=== PATIENT | female | born 1945 | race Caucasian/White ===

== ENCOUNTER → 2016-06-05 | Outpatient (CLI) | payer MEDICARE | LOC: LAB.O 11:42 | PROVIDERS: ATTEND Nurse Practitioner Family | DX: N39.0 Urinary tract infection, site not specified (principal); R10.9 Unspecified abdominal pain ==

== ENCOUNTER → 2019-11-15 | Outpatient (CLI) | payer MEDICARE | LOC: GMAM 17:33 | PROVIDERS: ATTEND Family Medicine | DX: L03.115 Cellulitis of right lower limb (principal) ==

== ENCOUNTER → 2019-11-17 | Outpatient (CLI) | payer MEDICARE ==
--- NOTE | 2019-11-17 15:16 | US ---
EXAM DESCRIPTION: Venous,Lower Extremity RT: ULTRASOUND. CLINICAL HISTORY: CELLULITIS. Right lower extremity. COMPARISON: None Available. TECHNIQUE: Laguna-scale and doppler sonographic evaluation of the deep venous system of the right lower extremity. FINDINGS: Doppler evaluation shows normal color flow and normal phasicity and augmentation of the right common femoral vein, femoral vein, popliteal vein, greater saphenous vein, junction with the CFV. Also normal color flow and normal phasicity and augmentation of the peroneal, and posterior tibial vein. The right lower extremity deep veins were completely compressible; normal occlusion with transducer pressure. Laguna-scale survey showed no echogenic thrombus within these veins. IMPRESSION: 1. Duplex ultrasound evaluation of the right lower extremity deep venous system showing no evidence of thrombosis. Electronically signed by: Adonis Sommers MD 11/17/2019 3:15 PM CDT
== END ==
LOC: US 09:34
PROVIDERS: ATTEND Family Medicine
DX: R60.0 Localized edema (principal); L03.115 Cellulitis of right lower limb

== ENCOUNTER 2020-03-05 07:51 | Emergency (ER) | payer MEDICARE ==
--- NOTE | 2020-03-05 07:55 | ED.PDOC ---
History of Present Illness - General Time Seen by Provider: 03/05/20 07:53 Source: patient - History of Present Illness Initial Comments: 75-year-old female with past medical history of hypertension, asthma, chronic smoker who presents with chief complaint of right forearm pain following injury this morning. Patient states around 12:30 AM she was kneeling on her bed and reaching up to grab the ceiling fan cord when she lost her balance and fell off the bed. She reports that she landed on her hips and back. However, she denies pain primarily to the right forearm. Describes constant, throbbing, 5/10 severity pain to the distal lateral right forearm, no radiation, worse with palpation and with closing the hand, no medications taken for relief. She does report moderate swelling to the site of pain. Denies any weakness or numbness. Denies any other injuries or pain. Denies hip pain, back pain. Patient additionally reports she has had some upper respiratory symptoms for the past 4 days with nonproductive cough. She is currently taking azithromycin. She does smoke approximately 4 cigarettes/day. Allergies/Adverse Reactions: Allergies NO KNOWN ALLERGY Allergy (Verified 03/05/20 08:08) Home Medications: Ambulatory Orders Tramadol HCl [Tramadol Hydrochloride] 50 mg PO Q6H PRN 10 Days #10 tab 03/05/20 Review of Systems - Review of Systems Review of Systems: 03/05/20 08:12 as per HPI All other Systems: Reviewed and Negative Past Medical History (General) - Patient Medical History Hx Seizures: No Hx Stroke: No Hx Dementia: No Hx Asthma: No Hx of COPD: No Hx Cardiac Disorders: No Hx Congestive Heart Failure: No Hx Pacemaker: No Hx Hypertension: No Hx Thyroid Disease: No Hx Diabetes: No Hx Gastroesophageal Reflux: No Hx Renal Disease: No Hx Cancer: No Hx of HIV: No Hx Hepatitis C: No Hx MRSA: No - Vaccination History Hx Tetanus, Diphtheria Vaccination: No Hx Influenza Vaccination: No Hx Pneumococcal Vaccination: No - Social History Hx Tobacco Use: No Hx Chewing Tobacco Use: No Hx Alcohol Use: No Hx Substance Use: No Hx Substance Use Treatment: No Hx Depression: No Hx Physical Abuse: No Hx Emotional Abuse: No Hx Suspected Abuse: No - Female History Patient : No Family Medical History - Family History Mother Family History: Unknown Name: mother Age (years): 79 Living Status: Age at (years of age): 79 Cause of : cancer, esophogeal Physical Exam - Physical Exam General Appearance: Alert, Comfortable, No apparent distress Eye Exam: bilateral normal Ears, Nose, Throat: normal ENT inspection, normal pharynx Neck: non-tender, full range of motion, supple, normal inspection Respiratory: lungs clear, normal breath sounds, no respiratory distress, no accessory muscle use Cardiovascular/Chest: normal peripheral pulses, regular rate, rhythm, no edema, no gallop, no JVD, no murmur Peripheral Pulses: radial,right: 2+, radial,left: 2+ Gastrointestinal/Abdominal: non tender, soft, no organomegaly Back Exam: normal inspection, no CVA tenderness, no vertebral tenderness Extremity: other - Right distal forearm with moderate swelling, possible deformity. Moderate tenderness to palpation to distal/lateral right forearm. 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 Otherwise range of motion, strength, sensation normal throughout. 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 Patient declines any further pain medications. Blood pressure is elevated but suspect due to pain, continue to monitor. 03/05/20 10:02 -X-ray imaging of the right forearm and wrist reveals displaced comminuted distal radius fracture of the right upper extremity. There is possibly some intra-articular extension. This is per my read. -There is a tiny superficial abrasion wound to the dorsal aspect of the right wrist. This was cleansed copiously by me with Hibiclens and explored. The base of the wound can easily be seen and does not communicate deeper to the fracture site. This is a closed fracture. There is no tenting noted either. -Discussed the patient with Dr. Benedict who reviewed the x-ray images. Advises to place patient in double sugar tong splint and sling. Patient will need to follow-up with orthopedic clinic in the next 1 to 2 days for repeat evaluation. It is likely that she will need surgery. -Splint placed by me in the ED. Patient reports pain well controlled. Neurovascularly intact. Discussed all findings and plan with patient. Discharged home in good condition, return warnings discussed. Tramadol prescription provided. Sampson Bryan MD Billing #[id number] Procedures - Splinting Right Arm Hand-Made Type: orthoglass Splint: sugar-tong - double Pre-Proc Neuro Vasc Exam: normal Post-Proc Neuro Vasc Exam: normal Departure - Departure Clinical Impression: Radius distal fracture Qualifiers: Encounter type: initial encounter Fracture type: closed Fracture morphology: other fracture Laterality: right Qualified Code(s): S52.591A - Other fractures of lower end of right radius, initial encounter for closed fracture Time of Disposition: 09:11 Disposition: Discharge to Home or Self Care Condition: Good Instructions: Forearm Fracture (DC) Diet: resume usual diet Activity: increase activity as tolerated Referrals: Tai Pizano MD [Primary Care Provider] - 1-2 Weeks Poncho Benedict MD [Active Staff] - 1-2 Days Prescriptions: Tramadol HCl [Tramadol Hydrochloride] 50 mg PO Q6H PRN 10 Days #10 tab PRN Reason: Pain Home Medications: Ambulatory Orders Tramadol HCl [Tramadol Hydrochloride] 50 mg PO Q6H PRN 10 Days #10 tab 03/05/20 Additional Instructions: Keep the splint in place at all times until removed by orthopedic surgery in order to prevent further shift in the fracture segments. Continue to take [id number] anti-inflammatory medications to help relieve pain and inflammation such as Tylenol 650 mg every 6 hours and ibuprofen 600 mg every 6 hours. Follow-up with orthopedic surgery in the next 1 to 2 days in the clinic for repeat evaluation. Return to the ED if you are unable to make your orthopedic surgery clinic appointment for any reason or if you develop any concerning symptoms such as new onset of weakness or numbness of the right hand, etc. Follow-up with your primary care physician also in the next 1 to 2 weeks for repeat evaluation or sooner as needed.
[2020-03-05 08:11] VITALS: TEMP 96.3
--- NOTE | 2020-03-05 08:38 | RAD ---
EXAM DESCRIPTION: Forearm,Right CLINICAL HISTORY: fall off bed, R distal forearm pain COMPARISON: None. IMPRESSION: 2 views of the right forearm show a comminuted mildly displaced fracture at the metadiaphyseal region of the right distal radius without significant angulation of the major distal fracture fragment. Minimal angulation of the distal fracture fragment the radial direction is seen. Mild 3 to 4 mm volar displacement of the largest fracture fragment is seen. Extension to the articular surface is seen without articular surface incongruity. Electronically signed by: Nathanael Peter MD 03/05/2020 8:37 AM CDT
--- NOTE | 2020-03-05 08:39 | RAD ---
EXAM DESCRIPTION: Wrist,Right 3 Views CLINICAL HISTORY: 75 years, Female, fall off bed, R distal forearm pain COMPARISON: None FINDINGS: Right wrist 3 x-ray views is positive for comminuted fracture of the distal right radial diametaphysis with mild impaction and minimal splaying of the fragments. The major distal fracture fragment is angulated slightly laterally. One of the fracture lines extends toward and possibly into the radiocarpal joint. Carpal relationships are well-maintained. 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 IMPRESSION: Comminuted fracture of the distal right radius. Electronically signed by: Fredi Carmona MD 03/05/2020 8:37 AM CDT
[2020-03-05] MEDS ORDERED: CHLORHEXIDINE GLUCONATE 4 % 15 ML UD TOP ONE (08:55)
[2020-03-05] MEDS ORDERED: ACETAMINOPHEN 500 MG TAB PO ONE (09:05)
[2020-03-05 10:23] VITALS: BP 159/86; O2SAT 92
== END 2020-03-05 10:23 | disposition home or self-care (01) ==
LOC: ER 07:51
DX: S52.501A Unspecified fracture of the lower end of right radius, initial encounter for closed fracture (principal); I10 Essential (primary) hypertension; J45.909 Unspecified asthma, uncomplicated; F17.200 Nicotine dependence, unspecified, uncomplicated; W06.XXXA Fall from bed, initial encounter; Y92.003 Bedroom of unspecified non-institutional (private) residence as the place of occurrence of the external cause

== ENCOUNTER 2020-03-07 05:19 | Day surgery (SDC) | payer MEDICARE ==
[2020-03-07] MEDS ORDERED: ceFAZolin SODIUM 1 GM VIAL ONE (05:48)
[2020-03-07] MEDS ORDERED: LACTATED RINGERS 1,000 ML ONE (05:48)
[2020-03-07] MEDS ORDERED: SODIUM CHL 0.9% 100ML MINI-BAG 100 ML IVPB ONE (05:48)
--- NOTE | 2020-03-07 06:19 | RAD ---
EXAM: XR Chest, 2 Views CLINICAL HISTORY: The patient is 75 years old and is Female; PREOP EXAM right radius orthopedic fixation TECHNIQUE: Two views of the chest. COMPARISON: October 31, 2014. FINDINGS: Lungs: Hyperinflation with COPD changes. Nonspecific groundglass opacities in the lung apices. No pulmonary vascular congestion. Pleural space: No pleural effusion or pneumothorax. Heart: Unremarkable. No cardiomegaly. Mediastinum: Unremarkable. Bones/joints: Mild kyphosis. No acute rib fracture identified. Upper abdomen: No free air in the visualized upper abdomen. IMPRESSION: Hyperinflation with COPD changes. Nonspecific groundglass opacities in the lung apices, slightly increased in conspicuity from October 31, 2014. Electronically signed by: Ely Martínez MD 03/07/2020 6:18 AM CDT
[2020-03-07] MEDS ORDERED: LEVALBUTEROL NEBS 1.25 MG/3 ML VIAL NEB STA (06:39)
[2020-03-07] MEDS ORDERED: LEVALBUTEROL NEBS 1.25 MG/3 ML VIAL NEB ONE (07:03)
[2020-03-07] MEDS ORDERED: MIDAZOLAM INJ 2 MG/2 ML VIAL ONE ×2 (08:57→09:17)
[2020-03-07] MEDS ORDERED: BUPIVACAINE 0.5% 30 ML VIAL INJ ONE (08:58)
[2020-03-07] MEDS ORDERED: KETAMINE HCL 100 MG/ML VIAL ONE (09:23)
[2020-03-07] MEDS: BUPIVACAINE LIPOSOME 13.3 MG/ML VIAL INJ ONE ×2 (10:01→12:00)
[2020-03-07] MEDS: ceFAZolin SODIUM 1 GM VIAL ONE ×2 (10:01→12:05)
[2020-03-07] MEDS: BUPIVACAINE 0.5% 30 ML VIAL INJ ONE ×2 (10:01→12:00)
[2020-03-07] MEDS: VANCOMYCIN HCL INJ 1,000 MG VIAL IVPB ONE ×2 (10:02→12:05)
[2020-03-07] MEDS ORDERED: DEXMEDETOMIDINE HCL 200 MCG/2 ML INJ IV ONE (10:57)
--- NOTE | 2020-03-08 08:16 | OP ---
DATE OF PROCEDURE: 03/07/20 PREOPERATIVE DIAGNOSIS: 1. Right radial shaft fracture. POSTOPERATIVE DIAGNOSIS: 1. Right radial shaft fracture. PROCEDURE: 1. ORIF of right radius. SURGEON: Poncho Benedict MD LABORER MINE: Adonis Cardoza CST, SA-C ANESTHESIA: General anesthesia. COMPLICATIONS: None. FINDINGS: Comminuted fracture of the distal one-third of the radius. INDICATION: Nguyen has a history of a fall that occurred the day before presentation to my office. She had the acute onset of pain and unfortunately had sustained a fracture. After discussing the risks, benefits and alternatives to operative therapy, she gave informed consent for ORIF. PROCEDURE: The patient was brought to the Operating Room and placed in supine position. General anesthesia was induced and the patient's arm was sterilely prepped and draped. Following prepping and draping, an incision was made on the anterior aspect of the arm and dissection was carried down to the fracture using standard volar approach to the radius. The fracture was identified and multiple fragments had to be fixed with compression screws. Once those fragments had been fixed, a plate was applied across the fracture site. The holes were drilled and filled and the patient's arm was taken through a range of motion under fluoroscopic imaging. There was no motion at the fracture site either under gross observation or under fluoroscopic observation. At that point, the wound was thoroughly irrigated and the tourniquet was deflated. Following deflation of the tourniquet, hemostasis was achieved. The wound was closed with a combination of running and interrupted subcuticular stitches. Sterile dressings were placed. The patient was awoken from anesthesia and taken to Recovery. POSTOPERATIVE PLAN: She will be immobilized until she sees us in two days. At that point, we will let her start doing range of motion of the elbow, wrist and digits. #[id number] [facility]
--- NOTE | 2020-03-08 19:18 | RAD ---
EXAM DESCRIPTION: Fluoroscopy Up to 1Hr CLINICAL HISTORY: 75 years Female, ORIF RIGHT WRIST COMPARISON: None. IMPRESSION: Multiple intraoperative fluoroscopic images saved for the benefit of the surgeon. Operative changes of screw and plate fixation traversing the distal radius. Please see procedure report for full details. Fluoroscopy time: 83.5 seconds Fluoroscopic images: 2 Total dose: 1.33 mGy Electronically signed by: Musa Tapia MD 03/08/2020 7:16 PM CDT
[2020-03-09 08:14] VITALS: TEMP 97.7
[2020-03-09 08:21] VITALS: BP 128/69; O2SAT 91
== END 2020-03-07 13:00 | disposition home or self-care (01) ==
LOC: AMB 05:19
PROVIDERS: ATTEND Orthopaedic Surgery
DX: S52.351A Displaced comminuted fracture of shaft of radius, right arm, initial encounter for closed fracture (principal); J45.909 Unspecified asthma, uncomplicated; Z79.899 Other long term (current) drug therapy; W19.XXXA Unspecified fall, initial encounter
CPT/HCPCS: 01830; 25515; 36415; 71046; 76000; 80048; 80307; 85025; 87070; 87635; 93005; 94640; J0690; J2250; J3370; J3490; J7050; J7120; J7614

== ENCOUNTER → 2020-03-09 | Outpatient (CLI) | payer MEDICARE ==
--- NOTE | 2020-03-11 19:11 | RAD ---
EXAM DESCRIPTION: Forearm,Right: CR/ CLINICAL HISTORY: 75 years Female, CLOSED FRACTURE OF SHAFT OF RADIUS COMPARISON: Posttraumatic radiographs right forearm March 05. TECHNIQUE/FINDINGS: 2 views right forearm post ORIF and immobilization. IMPRESSION: Volar plate at the distal right radial diaphyseal fracture. Multiple screws for fixation. Near-anatomic alignment. Small bone density along the ulnar aspect of the fracture site. No complications. Electronically signed by: Adonis Sommers MD 03/11/2020 7:10 PM CDT
== END ==
LOC: RAD 10:06
PROVIDERS: ATTEND Orthopaedic Surgery
DX: S52.351D Displaced comminuted fracture of shaft of radius, right arm, subsequent encounter for closed fracture with routine healing (principal); Z98.890 Other specified postprocedural states

== ENCOUNTER → 2020-03-30 | Outpatient (CLI) | payer MEDICARE ==
--- NOTE | 2020-03-30 16:12 | RAD ---
EXAM DESCRIPTION: Forearm,Right CLINICAL HISTORY: FRACTURE COMPARISON: 09 March 2020 TECHNIQUE: 2 views right FINDINGS: The exam reveals prior volar plate and screw fixation of a fracture of the distal radius. No new injury is seen. Alignment is unchanged from the previous exam. No significant callus formation is yet evident. IMPRESSION: ORIF distal right radial fracture. No callus formation is yet evident. Electronically signed by: Zain Gil MD 03/30/2020 4:11 PM [facility]
== END ==
LOC: RAD 09:59
PROVIDERS: ATTEND Orthopaedic Surgery
DX: S52.501D Unspecified fracture of the lower end of right radius, subsequent encounter for closed fracture with routine healing (principal)

== ENCOUNTER → 2020-04-27 | Outpatient (CLI) | payer MEDICARE ==
--- NOTE | 2020-04-28 14:10 | RAD ---
EXAM DESCRIPTION: Wrist,Right 3 Views CLINICAL HISTORY: 75 years Female, displaced comminuted fracture COMPARISON: Right wrist radiographs 03/05/2020 TECHNIQUE: 3 view radiograph of the right wrist. IMPRESSION: Interval placement of ventral screw and plate fixation traversing a distal radial fracture. No radiographic evidence for hardware complication. Alignment of the fracture components improved with near anatomic alignment. There may be slight sclerosis about the fracture to indicate healing. No appreciable surrounding callus formation. No soft tissue defect or radiopaque foreign body. Moderate arthrosis about the carpal bones. Neutral ulnar variance. Electronically signed by: Musa Tapia MD 04/28/2020 2:08 PM [facility]
== END ==
LOC: RAD 09:56
PROVIDERS: ATTEND Orthopaedic Surgery
DX: S52.351D Displaced comminuted fracture of shaft of radius, right arm, subsequent encounter for closed fracture with routine healing (principal); M19.031 Primary osteoarthritis, right wrist; Z98.890 Other specified postprocedural states

== ENCOUNTER → 2020-06-08 | Outpatient (CLI) | payer MEDICARE ==
--- NOTE | 2020-06-09 08:03 | RAD ---
EXAM: Wrist,Right 3 Views CLINICAL HISTORY: closed fracture of shaft of radius. TECHNIQUE: AP, lateral and oblique images. COMPARISON STUDY: April 27, 2020 FINDINGS: Internal fixation of the right distal radial fracture with plate and screws in similar position and orientation without hardware displacement. Fracture line remains partially lucent. No new fracture or dislocation. IMPRESSION: Healing distal radial fracture stabilized with plate and screws. Electronically signed by: Christiano Krishnamurthy MD 06/09/2020 8:01 AM [facility]
== END ==
LOC: RAD 09:54
PROVIDERS: ATTEND Orthopaedic Surgery
DX: S52.351D Displaced comminuted fracture of shaft of radius, right arm, subsequent encounter for closed fracture with routine healing (principal); Z98.890 Other specified postprocedural states